=== PATIENT | female | born 1945 | race Caucasian/White ===

== ENCOUNTER → 2024-03-15 14:05 | Outpatient (REF) | payer MEDICARE, OTHER, SELFPAY | LOC: RAD 14:05 | PROVIDERS: ATTENDING PHYSICIAN Surgery Vascular Surgery | DX: I65.29 Occlusion and stenosis of unspecified carotid artery (principal); I65.21 Occlusion and stenosis of right carotid artery | CPT/HCPCS: 93880 ==

== ENCOUNTER → 2024-08-23 14:15 | Outpatient (REF) | payer MEDICARE, OTHER, SELFPAY | LOC: DHVS 14:15 | PROVIDERS: ATTENDING PHYSICIAN Surgery Vascular Surgery; FAMILY PHYSICIAN Family Medicine | DX: I65.29 Occlusion and stenosis of unspecified carotid artery (principal); I65.21 Occlusion and stenosis of right carotid artery | CPT/HCPCS: 93880 ==

== ENCOUNTER → 2024-11-25 09:35 | Outpatient (REF) | payer MEDICARE, OTHER, SELFPAY ==
--- NOTE | 2024-10-30 13:19 | PN.DIAED02 ---
Referral
DSME Class Series Code: [id number]
Referred For: Diabetes Self-Management Training, Medical Nutrition Therapy, Self-Blood Glucose Monitoring, Long-Term Complication Instruction, Accute Complication Instruction, Continuous Glucose Monitoring, Medication management, Insulin
Instruction, Care Coordination, Disease Management
PHI Release Authorization Form Signed: Yes
Patient Problems:
Current Active Problems
Problem Status Onset
Controlled diabetes mellitus with hyperglycemia, with long-term current use of insulin
Demographic
(1) Controlled diabetes mellitus with hyperglycemia, with long-term current use of insulin
Status: Acute Code(s): E11.65 - Type 2 diabetes mellitus with hyperglycemia; Z79.4 - termite exterminator helper (current) use of insulin
Patient's primary language-: Kinyarwanda
Education: High school/GED
Occupation: Self-employed
Hours Worked/Week: 20-40
- Social
Primary Support Person: Self
Living Arrangements: Self & spouse, Family
- Learning Methods
Preferred Method: Hands-on demonstration
Barriers to Learning: None
Glycemic Control
- Blood Glucose Monitoring Assessment
Date: 10/07/24 (FBS: 104 mg/dL)
Blood glucose monitoring at home: Yes (Medtronic Guardian sensor)
Monitor Brands: Accu-Chek
Patient uses Alternate Site Testing: No
Patient instructed on Use and Limitation: No
- Hyperglycemia Assessment
Experiences Hyperglycemia: No
- Hypoglycemia Assessment
Patient carries glucose source: Yes
Patient experiences hypoglycemia: Yes
Frequency: 1-3x per week
Treatment: juice, Other (cookie--reviewed rule of 15)
Patient has required treatment by others: No
History of Hypoglycemia Unawareness: No
- Blood Glucose Monitoring Results
Source: insulin pump (Medtronic 780 G)
- Hemoglobin A1c
Date: 10/08/24
A1C Percentage (%): 7.9
Medical History of Diabetes
Family Diabetes History: Mother, Sibling
Previous Diabetes Education: Yes
How long ago?: 1-5 years ago
Previous visit with Dietitian: No
Complications/Comorbidity/Specialist: Cataracts, Diabetic Neuropathy, Heart Disease (Rouvastatin 40 mg daily, ASA 81 mg daily), Hypertension (lisinopril 10 mg daily), Hyperlipidemia, Metabolic (Jardiance 25 mg daily)
Current Home Medication
- Insulin Management
Patient adjusts own insulin dosages: Yes (wears Medtronic insulin pump)
Patient has access to glucagon: No (discussed requesting prescription from Endocrine MD)
Pump Management
- Insulin Pump Management
Pump Start Date: 10/21/24
Pump Brand: MiniMed/Metronic
Pump Model: Other (780 G)
Infusion Set Heating Element Winder: Metronic
Pump Reported Freq of Set Change: Every 2-3 days
Measures
- Anthropometrics
Height: 5 ft 2 in
Actual Weight: 175 lb
- Blood Pressure / Pulse
Blood pressure: 124/61
Pulse: 73
- Diabetes Management
Medical Management for Diabetes: Complete physical exam (08/28/25), Dental exam (07/02/24), Dilated eye exam (07/2024 goes every 3 months)
Self-Care
- Tobacco Usage
Do you now, or have you ever smoked?: Never smoked
- Alcohol & Drugs Usage
Drinks Alcohol: No
- Meals & Dining
Meals & Dining: Patient skips meals: No, Food Intolerance / Allergy: No, Cultural / Evangelical Dietary Needs: No
Primary Food Manager Health: Self
Primary Belt Puncher: Self
Dining Out Frequency: Never
- Physical Activity
Physical Limitation: No
Patient participates in physical Activity: Yes
Activity Types: walking (walks up and down stairs with job)
- Patient-Self Assessment
Diabetes Knowledge: Poor
Feelings About Diabetes: Acceptance
General Health: Good
Importance of Health: Extremely
Stress Level: High
Diabetes Interferes With:: Nothing
Barriers to Diabetes Management: Nothing
Depression Survey Score: 0
- Diabetes Identification
Carries Diabetes Identification: Yes
Care Plan
- Education Needs
Patient Education Needs: Diabetes disease process, Chronic complications, Acute complications, Medication, Monitoring, Physical activity, Psychosocial Adjustment, Nutritional management, Goal setting & problem solving
Recommended Diabetes Training Program based on assessment: Outpatient Diabetes Education Program
- Plan of Care
Plan of Care:
Danelle came to the initial DSME assessmetn with her daughter Low. Diagnosed 40 years ago, Danelle is currently on a Medtronic 780G automated insulin pump. She recently transitioned to this system 2 weeks ago from an older Medtronic pump that was
not automated. Danelle verbalized she was trying to get comfortable with the pump and learn to trust the automation. Currently she is taking Jardiance 25 mg in addition to her insulin via pump and is followed by an inspector. We reviewed
alternate sites to use for the infusion set along with treatemtnt for low blood sugar. Danelle reports she is very active throughout the day at work. I encouraged her to try and increase that activity duration or intensity and she identified it as
one of her goals. Danelle will contact the office with any concerns prior to the November DSME program.
--- NOTE | 2024-10-30 13:43 | PN.DIAED04 ---
Education Record
- Education Record
Class Attended: Other (Initial DSME assessment)
DSME Class Series Code: [id number]
Instructor: Nurse Practitioner (RANDAL Wise)
Pre-Program Knowledge: Needs review / Assistance
Pre-Test Score (%): 42
Goals
- Goal 1
Being Active: Exercise 15 minutes-3 times per week, Other (increase 15 minutes in addition to her normal activity)
Goals To Be Evaluated: Exercise 15 mins-3x/week. Other
- Goal 2
Healthy Eating: Make better food choices, Follow meal plan, Reduce portion sizes
Goals To Be Evaluated: Make better food choices. Follow meal plan. Reduce portion sizes
- Goal 3
Monitoring: Other (monitor for patterns and learn to trust the automated insulin pump)
Goals To Be Evaluated: Other
--- NOTE | 2024-11-27 12:52 | PN.DIAED14 ---
This is to notify you that your patient with diabetes, PORTER MEDINA ( 1945), has enrolled in our diabetes self-management classes that are being held at [facility].
These classes will include an introduction to diabetes, diet, medication, exercise and prevention of complications. At the end of our class series, you will receive a report of your patient's participation and progress for your records.
Please contact me at the Diabetes Center, , if there is any particular information regarding your patient that might be helpful to me.
Sincerely,
Zachary TEE-,[facility]
--- NOTE | 2024-11-27 12:52 | PN.DIAED04 ---
Education Record
- Education Record
Class Attended: Class 1
DSME Class Series Code: [id number]
Instructor: Nurse Practitioner (RANDAL Wise)
Class Curriculum:
Outpatient Diabetes Education Program:
Class 1 (120 minutes)
Describe the diabetes disease process and treatment options
Diabetes management
Develop personal strategies to promote health and behavior change
Integrate psychosocial adjustment for daily living
Monitor blood glucose and other parameters. Interpret and use the results for self-management decision making
Prevent, detect, and treat acute complications
Class Length (mins): 120
Post-Class 1 Test Score (%): 56
== END ==
LOC: DES 09:35
PROVIDERS: ATTENDING PHYSICIAN Internal Medicine Endocrinology, Diabetes & Metabolism; FAMILY PHYSICIAN Family Medicine
DX: E11.65 Type 2 diabetes mellitus with hyperglycemia (principal)
CPT/HCPCS: 99078

== ENCOUNTER → 2024-12-02 08:56 | Outpatient (REF) | payer MEDICARE, OTHER, SELFPAY ==
--- NOTE | 2024-12-03 15:38 | PN.DIAED04 ---
Education Record
- Education Record
Class Attended: Class 2
DSME Class Series Code: [id number]
Instructor: Registered Dietitian (Mayra Haley, RD, LDN, CDE)
Class Curriculum:
Outpatient Diabetes Education Program:
Class 2 (120 minutes)
Incorporate nutritional management into lifestyle
Understanding nutritional value
Understanding carbohydrate counting
Class Length (mins): 120
== END ==
LOC: DES 08:56
PROVIDERS: ATTENDING PHYSICIAN Internal Medicine Endocrinology, Diabetes & Metabolism
DX: E11.65 Type 2 diabetes mellitus with hyperglycemia (principal)
CPT/HCPCS: 99078

== ENCOUNTER → 2024-12-09 08:13 | Outpatient (REF) | payer MEDICARE, OTHER, SELFPAY ==
--- NOTE | 2024-12-10 09:03 | PN.DIAED04 ---
Education Record
- Education Record
Class Attended: Class 3
DSME Class Series Code: [id number]
Instructor: Registered Dietitian (Mayra Haley, RD, LDN, CDE)
Class Curriculum:
Outpatient Diabetes Education Program:
Class 3 (120 minutes)
Incorporate nutritional management into lifestyle
Class Length (mins): 120
== END ==
LOC: DES 08:13
PROVIDERS: ATTENDING PHYSICIAN Internal Medicine Endocrinology, Diabetes & Metabolism
DX: E11.65 Type 2 diabetes mellitus with hyperglycemia (principal)
CPT/HCPCS: 99078

== ENCOUNTER → 2024-12-16 07:59 | Outpatient (REF) | payer MEDICARE, OTHER, SELFPAY ==
--- NOTE | 2024-12-17 08:26 | PN.DIAED04 ---
Education Record
- Education Record
Class Attended: Class 4
DSME Class Series Code: [id number]
Instructor: Nurse Practitioner (RANDAL Wsie)
Class Curriculum:
Outpatient Diabetes Education Program:
Class 4 (120 minutes)
Develop personal strategies to promote health and behavior change
Incorporate physical activity into lifestyle
Utilize medications safety for maximum therapeutic effectiveness
Understand different medication/insulin mechanism of action
Preparing for travel
Class Length (mins): 120
Post-Class 4 Test Score (%): 93
== END ==
LOC: DES 07:59
PROVIDERS: ATTENDING PHYSICIAN Internal Medicine Endocrinology, Diabetes & Metabolism
DX: E11.65 Type 2 diabetes mellitus with hyperglycemia (principal)
CPT/HCPCS: 99078

== ENCOUNTER → 2024-12-23 09:31 | Outpatient (REF) | payer MEDICARE, OTHER, SELFPAY ==
--- NOTE | 2024-12-25 15:00 | PN.DIAED04 ---
Education Record
- Education Record
Class Attended: Class 5
DSME Class Series Code: [id number]
Instructor: Nurse Practitioner (RANDAL Wise)
Class Curriculum:
Outpatient Diabetes Education Program:
Class 5 (120 minutes)
Prevent, detect, and treat acute complications
Prevent, detect, and treat chronic complications through risk reduction
Develop personal strategies to address psychosocial issues and concerns
Development of diabetes self-management support plan
Letter to physician with DSMS plan attached sent
Class Length (mins): 120
Post-Program Knowledge: Demonstrates competency
Post-Test Score (%): 80
Post-Program Assessment
- Post-Program Assessment
Actual Weight: 161 lb 12.8 oz
Blood pressure: 119/64
Post-Program Depression Survey Score: 0
Reviewing Previous Goals?: Yes
Pre-Program Depression Survey Score: 0
- Goals 1 Evaluation
Goals To Be Evaluated: Exercise 15 mins-3x/week. Other
- Goals 2 Evaluation
Goals To Be Evaluated: Make better food choices. Follow meal plan. Reduce portion sizes
- Goals 3 Evaluation
Goals To Be Evaluated: use pump more trusting
--- NOTE | 2024-12-25 15:02 | PN.DIAED16 ---
This is to notify you that your patient with diabetes, PORTER MEDINA ( 1945), has attended the entire series of Diabetes Self-Management Education Classes.
Class 1 (120 minutes): Diabetes Overview - monitoring, stress/psychosocial adjustment, support, goal setting
Class 2 (120 minutes): Meal Planning - serving sizes, menu plans
Class 3 (120 minutes): Introduction to Carbohydrate Counting, Analyzing Food Labels
Class 4 (120 minutes): Medication, Exercise and Activity
Class 5 (120 minutes): Sick Day Management, Strategies to Reduce Complications, Problem Solving, Resources
The following behavioral goals were identified:
Exercise 15 mins-3x/week
Other
Make better food choices
Follow meal plan
Reduce portion sizes
use pump more trusting
A follow-up call will be made within three to six months to evaluate attainment of these goals and to check post-program Hemoglobin A1c and overall progress. All class participants are encouraged to contact me if I can be any further assistance in
learning how to manage their diabetes.
Sincerely,
Zachary TEE-,[facility]
== END ==
LOC: DES 09:31
PROVIDERS: ATTENDING PHYSICIAN Internal Medicine Endocrinology, Diabetes & Metabolism
DX: E11.65 Type 2 diabetes mellitus with hyperglycemia (principal)
CPT/HCPCS: 99078

== ENCOUNTER → 2025-03-05 08:20 | Outpatient (REF) | payer MEDICARE, OTHER, SELFPAY | LOC: RAD 08:20 | PROVIDERS: ATTENDING PHYSICIAN Physician Assistant; FAMILY PHYSICIAN Family Medicine | DX: I65.23 Occlusion and stenosis of bilateral carotid arteries (principal); I65.21 Occlusion and stenosis of right carotid artery | CPT/HCPCS: 93880 ==